=== PATIENT | male | born 1995 | race Two or more races ===

== ENCOUNTER 2020-09-20 01:34 | Emergency (ER) | payer OTHER ==
[~2020-09-20] VITALS: Ht 160 cm; Wt 64.5 kg
[2020-09-20 01:34] VITALS: BP 139/83
--- NOTE | 2020-09-20 01:38 | PHYS DOC ---
General Adult HPI: HPI: "..I just transfer from [place] to here at [facility]... I was in [place] for 3 years... 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 Patient had recent travel internationally from [place] to [facility]. No specific ill contacts. No history of immunosuppression. Up-to-date with vaccinations. Will be following at [facility] for care. Review of Systems: Review of Systems: Constitutional: Complaints of fever or chills Eyes: Denies change in visual acuity HENT: Complains of sore throat Respiratory: Denies cough or shortness of breath Cardiovascular: Denies chest pain or edema GI: Denies abdominal pain, nausea, vomiting, bloody stools or diarrhea : Denies dysuria Musculoskeletal: Denies back pain or joint pain Integument: Denies rash Neurologic: Denies headache, focal weakness or sensory changes Endocrine: Denies polyuria or polydipsia Lymphatic: Denies swollen glands Psychiatric: Denies depression or anxiety Family History: Family History: Noncontributory to presentation Current Medications: Current Meds: See nursing for home meds Allergies: Allergies: No known drug allergies Physical Exam: PE: Constitutional: Well developed, well nourished, moderate acute distress, non- toxic appearance. [] HENT: Normocephalic, atraumatic, bilateral external ears normal, oropharynx moist, injected pharynx no oral exudates, nose normal. [] Eyes: PERRLA, EOMI, conjunctiva normal, no discharge. [] Neck: Normal range of motion, no tenderness, supple, no stridor. Adenopathy in the anterior cervical chain bilaterally Cardiovascular: Tachycardia heart rate regular rhythm, no murmur [] Lungs & Thorax: Bilateral breath sounds equal at apex on auscultation. Patient [did have a few scattered wheezes.] Abdomen: Bowel sounds normal, soft, no tenderness, no masses, no pulsatile masses. [] Skin: Warm, dry, no erythema, no rash. Multiple tattoos. Back: No tenderness, no CVA tenderness. [] Extremities: No tenderness, no cyanosis, no clubbing, ROM intact, no edema. [] Neurologic: Alert and oriented X 3, normal motor function, normal sensory function, no focal deficits noted. [] Psychologic: Affect anxious , judgement normal, mood normal. [] EKG: EKG: My interpretation EKG shows a sinus rhythm at 122 bpm. No findings of acute STEMI. [] Some nonspecific T wave changes. Radiology/Procedures: Radiology/Procedures: [][address] [address] IMAGING REPORT Signed PATIENT: BRANDY DELEON ACCOUNT: [id number] : 1995 LOCATION: ER AGE: 25 SEX: M EXAM STATUS: PRE ER ORD. PHYSICIAN: GIL BLANK MD REASON: dyspnea, cough, congestion Omni 350 100cc PROCEDURE: CT ANGIOGRAPHY CHEST CT angiography chest with contrast PQRS statement: CT scans at this facility use dose reduction including either automated exposure control, iterative reconstructions, and /or weight based radiation dosing via mA and kV modification when appropriate to reduce radiation dose to as low as reasonably achievable. Contrast: 100 mL Omnipaque 350 intravenous contrast with 3-D reconstructions of the arteries acquired. HISTORY: Dyspnea, cough, congestion. FINDINGS: Heart size normal. Aorta and esophagus are unremarkable. No pulmonary artery emboli. No adenopathy in the chest. Trachea and bronchi are unremarkable. No pneumothorax, pulmonary opacities or pleural effusions. Bones are unremarkable. IMPRESSION: No acute process. No pulmonary artery emboli. Electronically signed by: Delfina Orona MD (09/20/2020 3:13 AM) [facility] [place] DICTATED AND SIGNED BY: DELFINA ORONA MD DATE: 09/20/20 0305 CC: GIL BLANK MD ~MTH0 [address] [place] [id number] IMAGING REPORT Signed PATIENT: SYLVIA WHITTAKER LACCOUNT: [id number] : 07/28/1938 LOCATION: ER AGE: 82 SEX: M EXAM STATUS: REG ER ORD. PHYSICIAN: GIL BLANK MD REASON: Chest pain PROCEDURE: PORTABLE CHEST 1V AP chest x-ray HISTORY: Chest pain. COMPARISON: CT chest September 12, 2020. FINDINGS: Dual-chamber cardiac pacemaker. Heart size normal. Mediastinal silhouette is normal. Small nodular density at the left lateral lung base corresponding to a 6 mm pulmonary nodule on prior CT imaging. No pneumothorax. No pleural effusions. Bibasilar interstitial infiltrates mildly decreased since the prior CT study. IMPRESSION: Mild improvement of the basilar pulmonary interstitial infiltrates. 6 mm inferior lingula pulmonary nodule again demonstrated as was present on the prior CT study. Attention on follow-up CT imaging in 6 months is advised. Electronically signed by: Delfina Orona MD (09/20/2020 2:27 AM) [facility] [place] [place] DICTATED AND SIGNED BY: DELFINA ORONA MD DATE: 09/20/20224 CC: GIL BLANK MD; PCP,UNKNOWN ~MTH0 0 Heart Score: HEART Score for Chest Pain: HEART Score for Chest Pain Response (Comments) Value History Slighlty/Non-Suspicious 0 ECG Normal 0 Age < 45 0 Risk Factors No Risk Factors 0 Troponin < Normal Limit 0 Total 0 Risk Factors: Risk Factors: DM, Current or recent (<one month) smoker, HTN, HLP, family history of CAD, obesity. Risk Scores: Score 0 - 3: 2.5% MACE over next 6 weeks - Discharge Home Score 4 - 6: 20.3% MACE over next 6 weeks - Admit for Clinical Observation Score 7 - 10: 72.7% MACE over next 6 weeks - Early Invasive Strategies Course & Med Decision Making: Course & Med Decision Making Pertinent Labs and Imaging studies reviewed. (See chart for details) Patient self isolate till results of Covid test available. Follow-up [place]. Patient gargle Listerine 4 times a day. Patient take Tylenol and ibuprofen as needed for pain and discomfort. Patient use MDI 2 puffs 4 times a day. Patient take amoxicillin 500 mg 3 times a day. Impression: 1. Fevers 2. Leukocytosis 18.4-with 77 neutrophils and 11 bands 3. Strep pharyngitis 4. Hypomagnesia 1.5 [] Dragon Disclaimer: Dragwilliam Disclaimer: This electronic medical record was generated, in whole or in part, using a voice recognition dictation system. Departure Departure: Scripts Ibuprofen (IBUPROFEN) 400 Mg Tablet 600 MG PO QIDPRN PRN for fever or discomfort, #120 TAB Prov: GIL BLANK MD 09/20/20 Acetaminophen (ACETAMINOPHEN) 500 Mg Tablet 1000 MG PO QIDPRN PRN for fever or discomfort, #120 TAB Prov: GIL BLANK MD 09/20/20 Amoxicillin (AMOXICILLIN) 500 Mg Capsule 1 CAP PO TID for strept., #30 CAP Prov: GIL BLANK MD 09/20/20 Dragon Disclaimer This chart was dictated in whole or in part using Voice Recognition software in a busy, high-work load, and often noisy Emergency Department environment. It may contain unintended and wholly unrecognized errors or omissions. GIL BLANK MD Sep 20, 2020 01:38
[2020-09-20] MEDS ORDERED: IV RINGERS SOLUTION,LACTATED 1,000 ML IV SCH (02:30)
[2020-09-20] MEDS ORDERED: ACETAMINOPHEN 500 MG TABLET PO ONE (02:45)
[2020-09-20] MEDS ORDERED: IBUPROFEN 600 MG TABLET. PO ONE (02:45)
[2020-09-20] MEDS ORDERED: IOHEXOL 350 MG/ML 100 ML VIAL. IV ONE (02:45)
[2020-09-20] MEDS ORDERED: CONTRAST GIVEN. MC PRN (02:45)
[2020-09-20] MEDS ORDERED: ALBUTEROL SULFATE 8GM INHALER. INH ONE (02:45)
[2020-09-20 02:58] LABS: BASO # 0.1 x10^3/uL (0.0-0.2); BASO % 1 % (0-3); EOS % 0 % (0-3); HEMATOCRIT 47.5 % (39.0-53.0); HEMOGLOBIN 15.8 g/dL (13.0-17.5); LYMPH # 1.1 x10^3/uL (1.0-4.8); LYMPH % 6 % (24-48); MEAN CORPUSCULAR HEMOGLOBIN 30 pg (25-35); MEAN CORPUSCULAR HGB CONC 33 g/dL (31-37); MEAN CORPUSCULAR VOLUME 91 fL (79-100); MONO # 1.2 x10^3/uL (0.0-1.1); MONO % 7 % (0-9); NEUT % 87 % (31-73); PLATELET COUNT 213 x10^3/uL (140-400); RED BLOOD COUNT 5.25 x10^6/uL (4.30-5.70); WHITE BLOOD COUNT 18.4 x10^3/uL (4.0-11.0)
--- NOTE | 2020-09-20 03:16 | RAD ---
CT angiography chest with contrast PQRS statement: CT scans at this facility use dose reduction including either automated exposure cont rol, iterative reconstructions, and /or weight based radiation dosing via mA and kV modification when appropriate to reduce radiation dose to as low as reasonably achievable. Contrast: 100 mL Omnipaque 350 intravenous contrast with 3-D reconstructions of the arteries acquired . HISTORY: Dyspnea, cough, congestion. FINDINGS: Heart size normal. Aorta and esophagus are unremarkable. No pulmonary artery emboli. No sterling nopathy in the chest. Trachea and bronchi are unremarkable. No pneumothorax, pulmonary opacities or p leural effusions. Bones are unremarkable. IMPRESSION: No acute process. No pulmonary artery emboli. Electronically signed by: Lorenzo Oorna MD (09/20/2020 3:13 AM) [facility]
[2020-09-20 03:19] LABS: % BANDS 11 % (0-9); % LYMPHS 6 % (24-48); % MONOS 6 % (0-10); % SEGS 77 % (35-66)
[2020-09-20 03:20] LABS: CALCIUM 9.2 mg/dL (8.5-10.1); CREATININE 1.2 mg/dL (0.7-1.3); GFR 73.2; PLT ESTIMATE ADEQUATE (ADEQUATE); POTASSIUM 3.8 mmol/L (3.5-5.1)
--- NOTE | 2020-09-20 03:20 | RAD ---
AP chest x-ray HISTORY: Dyspnea, cough and congestion. FINDINGS: Heart size normal. Mediastinal silhouette normal. No pneumothorax, pulmonary opacities or p leural effusions. The bones are unremarkable. IMPRESSION: No acute process. Electronically signed by: Lroenzo Orona MD (09/20/2020 3:17 AM) [facility]
[2020-09-20 03:21] LABS: INFLUENZA A PATIENT NEGATIVE (NEGATIVE); INFLUENZA B PATIENT NEGATIVE (NEGATIVE)
[2020-09-20 03:26] LABS: ALBUMIN 4.3 g/dL (3.4-5.0); DIRECT BILIRUBIN 0.3 mg/dL (0.0-0.2); MAGNESIUM 1.5 mg/dL (1.8-2.4); TOTAL BILIRUBIN 1.1 mg/dL (0.2-1.0); TOTAL PROTEIN 8.7 g/dL (6.4-8.2)
--- NOTE | 2020-09-20 03:29 | EKG ---
[address] [address] Test Date: 2020-09-20 Test Time: 03:09:06 Pat Name: BRANDY DELEON Department: Room: Gender: M Assistant Business Manager: : 1995 Requested By: GIL BLANK Order Number: [id number] Reading MD: Guille Jeronimo Measurements Intervals [place] Rate: 122 P: 254 FL: 106 QRS: 64 QRSD: 92 T: 10 QT: 358 QTc: 511 Interpretive Statements SINUS TACHYCARDIA T ABNORMALITY IN ANTERIOR LEADS INFERIOR LEADS ABNORMAL ECG RI6.02 No previous ECG available for comparison Electronically Signed On 09-25-2020 9:54:04 FRUIT TRIMMER by Guille Jeronimo
[2020-09-20] MEDS ORDERED: cefTRIAXone SODIUM 1 GM VIAL ONE ×2 (03:54→04:10)
[2020-09-20] MEDS ORDERED: IBUP400T18 PO (03:54)
[2020-09-20] MEDS ORDERED: AMOX500C PO (03:54)
[2020-09-20] MEDS ORDERED: ACET500T68 PO (03:54)
[2020-09-20] MEDS ORDERED: IV NORMAL SALINE 50ML 50 ML ONE (03:54)
[2020-09-20 04:03] LABS: BACTERIA,URINE 0 /HPF (0-FEW); BILIRUBIN,URINE NEG (NEG); CLARITY,URINE CLEAR; COLOR,URINE YELLOW; GLUCOSE,URINE NEG (NEG); NITRITE,URINE NEG (NEG); RBC,URINE 0 /HPF (0-2); UROBILINOGEN,URINE 0.2 mg/dL (0.2 mg/dL); WBC,URINE RARE /HPF (0-4)
[2020-09-20] MEDS ORDERED: predniSONE 10 MG TABLET PO ONE (04:15)
== END 2020-09-20 04:18 | disposition home or self-care (01) ==
LOC: ER 01:34
DX: D72.829 Elevated white blood cell count, unspecified (principal); E83.42 Hypomagnesemia; J02.0 Streptococcal pharyngitis; B95.0 Streptococcus, group A, as the cause of diseases classified elsewhere; Z20.822 Contact with and (suspected) exposure to COVID-19
CPT/HCPCS: 36415; 71045; 71275; 80048; 80076; 81001; 82550; 83690; 83735; 84443; 84484; 85007; 85025; 85379; 85610; 85730; 87804; 87880; 93005; 94640; 96361; 96374; 99285; C9803; J0696; J7120; J7512; Q9967; U0003; 94664

== ENCOUNTER 2021-10-01 10:47 | Emergency (ER) | payer OTHER ==
[~2021-10-01] VITALS: Ht 160 cm; Wt 64.5 kg
[~2021-10-01 10:47] MED LIST: ACET500T68 PO; AMOX500C PO; IBUP400T18 PO
[2021-10-01 10:58] VITALS: BP 147/85
[2021-10-01] MEDS ORDERED: IOHEXOL 350 MG/ML 100 ML VIAL. IV ONE (11:30)
[2021-10-01] MEDS ORDERED: CONTRAST GIVEN. MC PRN (11:30)
--- NOTE | 2021-10-01 12:05 | RAD ---
Examination: CT angiography chest with IV contrast HISTORY: History of cough, Covid for 3 weeks COMPARISON: None TECHNIQUE: Axial CT angiographic images of chest were performed with IV contrast. Coronal and sagitta l 3-D MIP reformats are performed Exposure: One or more of the following individualized dose reduction techniques were utilized for thi s examination: 1. Automated exposure control 2. Adjustment of the mA and/or kV according to patient size 3. Use of iterative reconstruction technique FINDINGS: The visualized thyroid gland grossly appears unremarkable. The central airways are patent. The calibe r of the aorta grossly appears unremarkable. There is no evidence of filling defect identified in the main pulmonary arterial trunk and right and left main pulmonary arteries and the visualized lobar, s egmental branches of the pulmonary arteries. The lungs are clear. The liver, spleen, adrenals grossly appears unremarkable. No evidence of lytic bony destructive lesion. IMPRESSION: 1. No evidence of pulmonary embolism. 2. The lungs are clear. Electronically signed by: Brady Yip MD (10/01/2021 12:03 PM) [id number]
[2021-10-01] MEDS ORDERED: ALBU2.5V8 IH (12:18)
--- NOTE | 2021-10-01 12:18 | PHYS DOC ---
Past History Past Medical History: No Pertinent History (MARINE RIVERA APRN) Past Surgical History: No Surgical History (MARINE RIVERA APRN) Smoking: Quit Less Than 1 Year Alcohol Use: None (MARINE RIVERA APRN) General Adult EDM: Chief Complaint: COUGH HPI: HPI: Patient is a 26-year-old male that presents today with increased difficulty breathing and cough while participating in exercises at work. Patient states that he had it was diagnosed with COVID-19 on September 13, 2021, he [facility] and he said he is having increased coughing coughing up blood, and increased difficulty breathing while participating in PT following his and Covid infection. Patient states that his cough and his increased difficulty breathing subside after he stops exercising, but it continues while he is exercising. Patient currently is in no acute distress, patient denies having any past medical history, patient states he quit smoking about 3 weeks ago for prior to that was smoking a pack per day. Patient was vaccinated for COVID-19 with the [place] vaccine. (MARINE RIVERA APRN) Review of Systems: Review of Systems: Constitutional: Denies fever or chills Eyes: Denies change in visual acuity HENT: Denies nasal congestion or sore throat Respiratory: Cough and increased shortness of breath with exercise Cardiovascular: Denies chest pain or edema GI: Denies abdominal pain, nausea, vomiting, bloody stools or diarrhea : Denies dysuria Musculoskeletal: Denies back pain or joint pain Integument: Denies rash Neurologic: Denies headache, focal weakness or sensory changes Endocrine: Denies polyuria or polydipsia Lymphatic: Denies swollen glands Psychiatric: Denies depression or anxiety (MARINE RIVERA APRN) Current Medications: Current Meds: Current Medications Medications (Trade) Dose Ordered Sig/Rigo Start Time Stop Time Status Last Admin Dose Admin Info (Do NOT chart on this entry -- for MONITORING) 1 each PRN DAILY PRN 10/01/21 11:30 10/03/21 11:29 Iohexol (Omnipaque 350 Mg/ml) 100 ml 1X ONCE 10/01/21 11:30 10/01/21 11:31 DC (MARINE RIVERA APRN) Allergies: Allergies: Allergies Coded Allergies Type Severity Reaction Last Updated Verified No Known Drug Allergies 09/20/20 No (MARINE RIVERA APRN) Physical Exam: PE: Constitutional: Well developed, well nourished, no acute distress, non-toxic appearance. [] HENT: Normocephalic, atraumatic, bilateral external ears normal, oropharynx moist, no oral exudates, nose normal. [] Eyes: PERRLA, EOMI, conjunctiva normal, no discharge. [] Neck: Normal range of motion, no tenderness, supple, no stridor. [] Cardiovascular:Heart rate regular rhythm, no murmur [] Lungs & Thorax: Bilateral breath sounds clear to auscultation [] Abdomen: Bowel sounds normal, soft, no tenderness, no masses, no pulsatile masses. [] Skin: Warm, dry, no erythema, no rash. [] Back: No tenderness, no CVA tenderness. [] Extremities: No tenderness, no cyanosis, no clubbing, ROM intact, no edema. [] Neurologic: Alert and oriented X 3, normal motor function, normal sensory function, no focal deficits noted. [] Psychologic: Affect normal, judgement normal, mood normal. [] (MARINE RIVERA APRN) Current Patient Data: Vital Signs: Vital Signs Date Time Temp Pulse Resp B/P (MAP) Pulse Ox O2 Delivery O2 Flow Rate FiO2 10/01/21 10:58 98.4 112 16 147/85 (105) 99 Room Air (MARINE RIVERA APRN) EKG: EKG: [] (MARINE RIVERA APRN) Radiology/Procedures: Radiology/Procedures: [REASON: cough, covid + three weeks ago PROCEDURE: CT ANGIOGRAPHY CHEST Examination: CT angiography chest with IV contrast HISTORY: History of cough, Covid for 3 weeks COMPARISON: None TECHNIQUE: Axial CT angiographic images of chest were performed with IV contrast. Coronal and sagittal 3-D MIP reformats are performed Exposure: One or more of the following individualized dose reduction techniques were utilized for this examination: 1. Automated exposure control 2. Adjustment of the mA and/or kV according to patient size 3. Use of iterative reconstruction technique FINDINGS: The visualized thyroid gland grossly appears unremarkable. The central airways are patent. The caliber of the aorta grossly appears unremarkable. There is no evidence of filling defect identified in the main pulmonary arterial trunk and right and left main pulmonary arteries and the visualized lobar, segmental branches of the pulmonary arteries. The lungs are clear. The liver, spleen, adrenals grossly appears unremarkable. No evidence of lytic bony destructive lesion. IMPRESSION: 1. No evidence of pulmonary embolism. 2. The lungs are clear. Electronically signed by: Brady Yip MD (10/01/2021 12:03 PM) [id number] ] (MARINE RIVERA APRN) Heart Score: C/O Chest Pain: N/A Risk Factors: Risk Factors: DM, Current or recent (<one month) smoker, HTN, HLP, family history of CAD, obesity. Risk Scores: Score 0 - 3: 2.5% MACE over next 6 weeks - Discharge Home Score 4 - 6: 20.3% MACE over next 6 weeks - Admit for Clinical Observation Score 7 - 10: 72.7% MACE over next 6 weeks - Early Invasive Strategies (MARINE RIVERA APRN) Course & Med Decision Making: Course & Med Decision Making Pertinent Labs and Imaging studies reviewed. (See chart for details) 1213 reviewed radiological results with patient as I did inform him that there was no acute processes noted on his CT of his chest. Did inform him that the effects he is feeling may be resulting from the virus that he had back in August and that he may be having residual effects from that. I will order a albuterol inhaler to be taken right before PT to help with the chest tightness t hat he experienced when he is running, I did inform him that if this continues he will need to follow-up with his primary care physician for further testing and management of this on an outpatient basis. Patient did verbalize understanding of this and agreeable to the plan of care. (MARINE RIVERA APRN) Dragon Disclaimer: Dragon Disclaimer: This electronic medical record was generated, in whole or in part, using a voice recognition dictation system. (MARINE RIVERA APRN) Attending Co-Sign The patient was seen and interviewed as well as examined at the bedside. The chart was reviewed. The case was discussed. Agree with the plan of care. (LITO PARRISH DO) Departure Departure: Impression: Primary Impression: Cough Additional Impression: Chest pain Qualified Codes: R07.9 - Chest pain, unspecified Disposition: HOME / SELF CARE / HOMELESS Condition: STABLE Referrals: KENNETH MOISE MD (PCP) Patient Instructions: Cough, Adult Additional Instructions: Albuterol inhaler 2 puffs before exercising or every 4 hours as needed for shortness of breath Follow-up with your primary care physician for further management of your shortness of breath if it continues for greater than 5 to 7 days. Scripts Albuterol Sulfate (VENTOLIN HFA INHALER) 18 Gm Hfa.aer.ad 1 PUFF IH PRN Q4HRS PRN for FOR ASTHMA, #1 EACH 0 Refills Prov: MARINE RIVERA PATIENT CARRIER 10/01/21 MARINE RIVERA APRN Oct 01, 2021 12:18 LITO PARRISH DO Oct 02, 2021 06:16
== END 2021-10-01 12:35 | disposition home or self-care (01) ==
LOC: ER 10:47
DX: R05.9 Cough, unspecified (principal); R07.89 Other chest pain; R04.2 Hemoptysis; Z87.891 Personal history of nicotine dependence
CPT/HCPCS: 71275; 99285